=== PATIENT | male | born 1940 | race Caucasian/White ===

== ENCOUNTER 2021-07-07 20:54 | Emergency (ER) | payer OTHER | END 2021-07-07 23:20 | disposition home or self-care (01) | LOC: ER1 20:54 | DX: T18.128A Food in esophagus causing other injury, initial encounter (principal); I51.9 Heart disease, unspecified; E11.9 Type 2 diabetes mellitus without complications; Z79.84 Long term (current) use of oral hypoglycemic drugs | CPT/HCPCS: 70490; 99283 ==

== ENCOUNTER → 2021-09-22 | Outpatient (CLI) | payer OTHER ==
[~2021-09-22] VITALS: Ht 175.3 cm; Wt 90.7 kg
== END ==
LOC: EROP 10:10
DX: U07.1 COVID-19 (principal); Z23 Encounter for immunization
CPT/HCPCS: M0222; Q0222